=== PATIENT | male | born 1985 | race Caucasian/White ===

== ENCOUNTER 2021-10-24 22:01 | Emergency (ER) | payer BC ==
[~2021-10-24] VITALS: Ht 177.8 cm; Wt 104.5 kg
[2021-10-24] MEDS ORDERED: VERAPAMIL HCL120 M3 PO (22:13)
[2021-10-24] MEDS ORDERED: RELPAX 40MG TAB40 MG PO (22:13)
[2021-10-24] MEDS ORDERED: TIZANIDINE HYDRO4 MG PO (22:13)
[2021-10-24 22:35] LABS: EOS # 0.33 K/mm3 (0.04-0.40); HEMATOCRIT 45.3 % (42.0-52.0); HEMOGLOBIN 14.7 g/dL (13.5-18.0); MEAN CELL VOLUME 81 fl (78-100); MEAN CORPUSCULAR HEMOGLOBIN 26 pg (27-31); MEAN CORPUSCULAR HGB CONC 33 g/dL (33-37); MEAN PLATELET VOLUME 9.4 fl (7.4-10.4); MONO # 1.32 K/mm3 (0.20-0.80); NEU # 6.71 K/mm3 (1.40-6.50); PLATELET COUNT 335 K/mm3 (130-400); RED BLOOD COUNT 5.62 M/mm3 (4.20-5.60); RED CELL DISTRIBUTION WIDTH 13.1 % (11.5-14.5); WHITE BLOOD COUNT 10.9 K/mm3 (4.8-10.8)
[2021-10-24 22:46] LABS: URINE APPEARANCE CLEAR; URINE BILIRUBIN NEGATIVE (NEGATIVE); URINE COLOR YELLOW; URINE GLUCOSE NEGATIVE (NEGATIVE); URINE KETONE NEGATIVE (NEGATIVE); URINE NITRATE NEGATIVE (NEGATIVE); URINE PROTEIN(semi-quant) NEGATIVE (NEGATIVE); URINE UROBILINOGEN NORMAL (NORMAL)
[2021-10-24 22:47] LABS: URINE BLOOD 50 ery/uL (NEGATIVE); URINE LEUKOCYTE ESTERASE NEGATIVE (NEGATIVE)
[2021-10-24 22:48] LABS: ALBUMIN 4.3 g/dL (3.5-5.0); POTASSIUM 4.2 mmol/L (3.5-5.1)
[2021-10-24 22:49] LABS: CALCIUM 9.6 mg/dL (8.3-10.5)
[2021-10-24 22:51] LABS: TOTAL PROTEIN 7.6 g/dL (6.4-8.3)
[2021-10-24 22:52] LABS: TOTAL BILIRUBIN 0.3 mg/dL (0.2-1.2)
[2021-10-25] MEDS ORDERED: FLOMAX0.4 MG PO (00:12)
[2021-10-25] MEDS ORDERED: KETOROLAC10 MG PO (00:13)
[2021-10-25 00:25] VITALS: BP 154/107
== END 2021-10-25 00:25 | disposition home or self-care (01) ==
LOC: ED 22:01
PROVIDERS: Nurse Practitioner
DX: N13.2 Hydronephrosis with renal and ureteral calculous obstruction (principal)
CPT/HCPCS: J1885; J2270; J2405; J7030